=== PATIENT | male | born 1955 | race Caucasian/White ===

== ENCOUNTER 2021-03-19 23:01 | Emergency (ER) | payer MEDICARE, MEDICAID ==
[~2021-03-19] VITALS: Ht 175.3 cm; Wt 86.0 kg
[2021-03-19] MEDS ORDERED: ketorolac tromethamine 15mg/ml inj. IM ONE (23:20)
[2021-03-19] MEDS ORDERED: NAPR-56 PO (23:45)
[2021-03-19] MEDS ORDERED: CYCL-1 PO (23:45)
[2021-03-20 00:14] VITALS: BP 188/98
== END 2021-03-20 00:23 | disposition home or self-care (01) ==
LOC: ER 23:02
DX: M67.814 Other specified disorders of tendon, left shoulder (principal); I10 Essential (primary) hypertension; Z79.899 Other long term (current) drug therapy
CPT/HCPCS: 73030; 93005; 96372; 99283; J1885